=== PATIENT | female | born 1980 | race Caucasian/White ===

== ENCOUNTER 2017-04-24 10:57 | Outpatient (CLI) | payer BC ==
[2017-04-24 11:37] LABS: HEMOGLOBIN 12.9 gm/dl (12.3-15.3); RED BLOOD COUNT 4.28 M/UL (4.00-5.10); WHITE BLOOD COUNT 10.6 K/UL (4.5-11.0)
== END 2017-04-24 12:02 | disposition home or self-care (01) ==
LOC: GENOP 10:57
PROVIDERS: Obstetrics & Gynecology
DX: Z01.812 Encounter for preprocedural laboratory examination (principal); Z34.93 Encounter for supervision of normal pregnancy, unspecified, third trimester; Z3A.38 38 weeks gestation of pregnancy
CPT/HCPCS: 36415; 81001; 85025

== ENCOUNTER 2017-04-27 05:38 | Inpatient (IN) | payer BC ==
[~2017-04-27] VITALS: Ht 160 cm; Wt 87.1 kg
[2017-04-28 05:05] LABS: HEMOGLOBIN 10.4 gm/dl (12.3-15.3)
[2017-04-29] MEDS ORDERED: COLACE 100MG C100 MG PO (10:45)
== END 2017-04-29 15:31 | disposition home or self-care (01) | DRG 766 ==
LOC: OB 05:38
PROVIDERS: ADMIT Obstetrics & Gynecology
PROC: 3E0R3CZ (ICD-10-PCS; 2017-04-27)
PROC: 10D00Z1 Extraction of Products of Conception, Low, Open Approach (ICD-10-PCS; principal; 2017-04-27 07:30)
PROC: 3E0234Z Introduction of Serum, Toxoid and Vaccine into Muscle, Percutaneous Approach (ICD-10-PCS; 2017-04-28)
PROC: 3E0234Z Introduction of Serum, Toxoid and Vaccine into Muscle, Percutaneous Approach (ICD-10-PCS; 2017-04-29)
DX: O32.1XX0 Maternal care for breech presentation, not applicable or unspecified (principal); Z3A.39 39 weeks gestation of pregnancy; Z37.0 Single live birth; O09.513 Supervision of elderly primigravida, third trimester; O99.214 Obesity complicating childbirth; E66.9 Obesity, unspecified; O99.613 Diseases of the digestive system complicating pregnancy, third trimester; K59.00 Constipation, unspecified; O99.353 Diseases of the nervous system complicating pregnancy, third trimester; G43.909 Migraine, unspecified, not intractable, without status migrainosus; Z23 Encounter for immunization; Z68.33 Body mass index [BMI] 33.0-33.9, adult; Z82.49 Family history of ischemic heart disease and other diseases of the circulatory system
CPT/HCPCS: 36415; 82800; 85014; 85018; 90707; 90715; C9113; J0690; J2270; J2274; J2405; J2590; J2765; J3010; J7120

== ENCOUNTER → 2017-05-03 | Outpatient (CLI) | payer BC ==
[~2017-05-03] VITALS: Ht 160 cm; Wt 81.6 kg
[~2017-05-03] MED LIST: COLACE 100MG C100 MG PO
[2017-05-03 20:15] LABS: RED BLOOD COUNT 3.65 M/UL (4.00-5.10); WHITE BLOOD COUNT 11.2 K/UL (4.5-11.0)
[2017-05-03 20:32] LABS: BUN/CREATININE RATIO 16 (0-10)
== END ==
LOC: GENOP 19:30 → OB 19:43
PROVIDERS: Obstetrics & Gynecology
DX: O16.5 Unspecified maternal hypertension, complicating the puerperium (principal); Z86.69 Personal history of other diseases of the nervous system and sense organs; Z79.4 Long term (current) use of insulin; Z79.899 Other long term (current) drug therapy
CPT/HCPCS: 36415; 80053; 81001; 82570; 84156; 84550; 85025; G0378; G0463